=== PATIENT | male | born 1965 | race Caucasian/White ===

== ENCOUNTER → 2020-01-23 | Outpatient (CLI) | payer OTHER ==
--- NOTE | 2020-01-23 10:41 | RAD ---
EXAM: Right lower quadrant. HISTORY: Pain and fullness. TECHNIQUE: Sonographic imaging of the right lower quadrant at the site of reported pain and fullness was performed. COMPARISON: None. FINDINGS: There is no evidence of a mass or fluid collection. No hernia is seen. There is a benign right inguinal lymph node measuring 1.3 cm in maximum caliber. IMPRESSION: 1. No acute sonographic finding or suspicious finding to correlate with reported pain and fullness within the right lower quadrant. 2. Small benign right inguinal lymph node. Electronically signed by: Indy Gordon MD (01/23/2020 10:37 AM) [facility]
== END ==
LOC: US 09:44
PROVIDERS: ATTEND Registered Nurse
DX: R10.31 Right lower quadrant pain (principal)
CPT/HCPCS: 93975